=== PATIENT | female | born 2000 | race Two or more races ===

== ENCOUNTER 2021-08-15 10:02 | Emergency (ER) | payer OTHER ==
[~2021-08-15] VITALS: Ht 160 cm; Wt 54.4 kg
[~2021-08-15 10:02] MED LIST: LEVSIN/SL0.125 MG PO; MILLIPRED5 MG PO; PROTONIX20 MG PO; XYZAL5 MG PO; ZANTAC150 MG PO
[2021-08-15] MEDS ORDERED: XANAX0.25 MG PO (10:21)
[2021-08-15] MEDS ORDERED: PROZAC10 MG PO (10:21)
[2021-08-15] MEDS ORDERED: BENZONATATE200 M1 PO (12:34)
== END 2021-08-15 12:45 | disposition home or self-care (01) ==
LOC: ER 10:02
DX: J02.9 Acute pharyngitis, unspecified (principal); Z20.822 Contact with and (suspected) exposure to COVID-19

== ENCOUNTER 2021-11-29 18:08 | Emergency (ER) | payer OTHER ==
[~2021-11-29] VITALS: Ht 157.5 cm; Wt 59.0 kg
[~2021-11-29 18:08] MED LIST changes: +BENZONATATE200 M1 PO; +PROZAC10 MG PO; +XANAX0.25 MG PO
[2021-11-29] MEDS ORDERED: ZITHROMAX500 MG PO (22:31)
== END 2021-11-29 22:53 | disposition home or self-care (01) ==
LOC: ER 18:08
DX: J02.9 Acute pharyngitis, unspecified (principal); B34.9 Viral infection, unspecified; Z20.822 Contact with and (suspected) exposure to COVID-19

== ENCOUNTER 2024-08-08 01:08 | Emergency (ER) | payer OTHER ==
[~2024-08-08] VITALS: Ht 160 cm; Wt 57.6 kg
[~2024-08-08 01:08] MED LIST changes: +ZITHROMAX500 MG PO
[2024-08-08] MEDS ORDERED: TRAZODONE HCL50 MG PO (01:12)
[2024-08-08 01:14] VITALS: BP 120/80; O2SAT 98
[2024-08-08] MEDS ORDERED: METHYLPREDNISOLONE SOD SUCC 125 MG VIAL IV STA (02:06)
[2024-08-08] MEDS ORDERED: FAMOTIDINE/PF 20 MG/2 ML VIAL IV PUSH STA (02:06)
[2024-08-08] MEDS ORDERED: DIPHENHYDRAMINE HCL 50 MG/ML VIAL 1ML IV STA (02:06)
[2024-08-08] MEDS ORDERED: EPINEPHRINE HCL/PF 1 MG/ML AMPUL SUBCUTANEO STA ×2 (02:07→02:11)
[2024-08-08] MEDS ORDERED: EPINEPHRINE HCL/PF 1 MG/ML AMPUL ONE (02:25)
[2024-08-08] MEDS ORDERED: DIPHENHYDRAMINE HCL 50 MG/ML VIAL 1ML ONE (02:26)
[2024-08-08] MEDS ORDERED: FAMOTIDINE/PF 20 MG/2 ML VIAL ONE (02:26)
[2024-08-08] MEDS ORDERED: METHYLPREDNISOLONE SOD SUCC 125 MG VIAL ONE (02:26)
[2024-08-08] MEDS ORDERED: BENADRYL25 MG PO (03:45)
[2024-08-08] MEDS ORDERED: MEDROL8 MG PO (03:45)
[2024-08-08] MEDS ORDERED: PEPCID40 MG PO (03:45)
== END 2024-08-08 03:52 ==
LOC: ER 01:09
DX: T78.3XXA Angioneurotic edema, initial encounter (principal)

== ENCOUNTER 2024-08-18 01:44 | Emergency (ER) | payer OTHER ==
[~2024-08-18] VITALS: Ht 160 cm; Wt 58.1 kg
[~2024-08-18 01:44] MED LIST changes: +BENADRYL25 MG PO; +MEDROL8 MG PO; +PEPCID40 MG PO; +TRAZODONE HCL50 MG PO
[2024-08-18 02:04] VITALS: BP 130/88; O2SAT 100
[2024-08-18] MEDS ORDERED: CEFTRIAXONE SODIUM 1,000 MG VIAL ONE (02:14)
[2024-08-18] MEDS ORDERED: KETOROLAC TROMETHAMINE 30 MG VIAL ONE (02:14)
[2024-08-18] MEDS ORDERED: DEXAMETHASONE SODIUM PHOSPHATE 4 MG/ML VIAL ONE (02:14)
[2024-08-18] MEDS ORDERED: CEFTRIAXONE SODIUM 1,000 MG VIAL IV ONE (02:15)
[2024-08-18] MEDS ORDERED: DEXAMETHASONE SODIUM PHOSPHATE 4 MG/ML VIAL IM ONE (02:15)
[2024-08-18] MEDS ORDERED: KETOROLAC TROMETHAMINE 30 MG VIAL IV ONE (02:15)
[2024-08-18] MEDS ORDERED: ONDANSETRON HCL 2 MG/ML VIAL ONE (02:21)
[2024-08-18 02:45] LABS: HEMATOCRIT 35.7 % (36.0-45.00); MEAN CORPUSCULAR HEMOGLOBIN 28.2 pg (27.00-32.0); MEAN CORPUSCULAR HGB CONC 33.5 g/dl (32.0-36.0); PLATELET COUNT 221 K/uL (150-450); RED BLOOD COUNT 4.25 M/uL (4.00-6.00); RED CELL DISTRIBUTION WIDTH 14.3 % (11.5-14.5)
[2024-08-18 03:03] LABS: COVID-19 AG NEGATIVE (NEGATIVE)
[2024-08-18 03:04] LABS: INFLUENZA A AG NEGATIVE (NEGATIVE)
[2024-08-18] MEDS ORDERED: AMOX-CLAV 875-1 EACH PO (03:36)
[2024-08-18] MEDS ORDERED: DICLOFENAC SODI75 MG PO (03:36)
[2024-08-18] MEDS ORDERED: PEPCID AC20 MG PO (03:36)
== END 2024-08-18 04:03 | disposition home or self-care (01) ==
LOC: ER 01:45
PROVIDERS: General Practice
DX: J06.9 Acute upper respiratory infection, unspecified (principal)
CPT/HCPCS: 96365; 96372; 99282; J0696; J1100; J1885

== ENCOUNTER 2024-09-02 19:21 | Emergency (ER) | payer OTHER ==
[~2024-09-02] VITALS: Ht 152.4 cm; Wt 58.5 kg
[~2024-09-02 19:21] MED LIST changes: +AMOX-CLAV 875-1 EACH PO; +DICLOFENAC SODI75 MG PO; +PEPCID AC20 MG PO
[2024-09-02] MEDS ORDERED: METHYLPREDNISOLONE SOD SUCC 125 MG VIAL ONE (19:59)
[2024-09-02] MEDS ORDERED: DIPHENHYDRAMINE HCL 50 MG/ML VIAL 1ML ONE (19:59)
[2024-09-02] MEDS ORDERED: DIPHENHYDRAMINE HCL 50 MG/ML VIAL 1ML IV ONE (20:00)
[2024-09-02] MEDS ORDERED: METHYLPREDNISOLONE SOD SUCC 125 MG VIAL IV ONE (20:00)
== END 2024-09-02 21:23 | disposition home or self-care (01) ==
LOC: ER 19:21
DX: L55.9 Sunburn, unspecified (principal); L28.2 Other prurigo; Z91.09 Other allergy status, other than to drugs and biological substances; L29.9 Pruritus, unspecified
CPT/HCPCS: 96365; 99282; J1200; J3490

== ENCOUNTER 2024-12-26 16:33 | Emergency (ER) | payer OTHER ==
[~2024-12-26] VITALS: Ht 160 cm; Wt 59.0 kg
[2024-12-26 17:10] VITALS: BP 103/72; O2SAT 96
[2024-12-26] MEDS ORDERED: FAMOTIDINE/PF 20 MG in 0.9 % SODIUM CHLORIDE 8 ML IV PUSH STA (17:21)
[2024-12-26] MEDS ORDERED: DIPHENOXYLATE HCL/ATROPINE 1 UDTAB TABLET PO ONE (17:30)
[2024-12-26] MEDS ORDERED: ONDANSETRON HCL 2 MG/ML VIAL IV ONE (17:30)
[2024-12-26] MEDS ORDERED: 0.9 % SODIUM CHLORIDE 1,000 ML IV SCH (17:30)
[2024-12-26 17:54] LABS: BASO % 0.3 % (0.1-1.2); EOS # 0.05 (0.04-0.54); EOS % 0.5 % (0.7-7.0); LYMPH # 1.97 (1.18-3.74); LYMPH % 18.2 % (19.3-53.1); MEAN PLATELET VOLUME 9.80 fl (9.4-12.4); MONO # 0.70 (0.24-0.82); MONO % 6.5 % (4.7-12.5); NEUT # 8.07 (1.56-6.13); NEUT % 74.2 % (34.0-71.1); RED CELL DISTRIBUTION WIDTH 13.3 % (11.6-14.4)
[2024-12-26 18:15] LABS: COVID-19 AG NEGATIVE (NEGATIVE)
[2024-12-26 18:31] LABS: ALT/SGPT 17.0 U/L (12-78); AST/SGOT 16.0 U/L (15-37); BILIRUBIN TOTAL 0.49 mg/dL (0.3-1.2); BUN CREA RATIO 14.0 (7.0-25.0); CREATININE SERUM 0.74 mg/dL (0.55-1.02); GFR 94.86; GLOBULINA 3.6 G/DL (2.4-3.5); GLUCOSE FASTING 82.0 mg/dL (65-100); OSMOLALITY SERUM 279.0 MOSM/KG (275-295)
[2024-12-26] MEDS ORDERED: ONDANSETRON ODT8 MG PO (20:42)
== END 2024-12-26 20:50 | disposition home or self-care (01) ==
LOC: ER 16:41
PROVIDERS: General Practice
DX: K52.89 Other specified noninfective gastroenteritis and colitis (principal); R11.2 Nausea with vomiting, unspecified; Z20.822 Contact with and (suspected) exposure to COVID-19

== ENCOUNTER 2025-01-21 17:13 | Emergency (ER) | payer OTHER ==
[~2025-01-21] VITALS: Ht 160 cm; Wt 59.0 kg
[~2025-01-21 17:13] MED LIST changes: +ONDANSETRON ODT8 MG PO
[2025-01-21] MEDS ORDERED: HYDROCODONE/CHLORPHEN P-STIREX 5 ML ML PO STA (18:53)
== END 2025-01-21 21:10 | disposition home or self-care (01) ==
LOC: ER 17:13
DX: U07.1 COVID-19 (principal); J06.9 Acute upper respiratory infection, unspecified; R51.9 Headache, unspecified